=== PATIENT | male | born 1985 | race African-American/Black ===

== ENCOUNTER 2025-03-13 23:09 | Emergency (ER) | payer SELFPAY ==
[2025-03-13 23:25] VITALS: BP 129/85; PULSE 80; RESP 18; TEMP 36.7; O2SAT 97; BMI 29.6
--- OUTSIDE RECORDS SUMMARY | 2025-03-13 23:54 | XMS_ITS | Clinical Summary ---
Author Organization [address] [facility] Address [address] [place] [phone] Phone Care Team Providers Care Geological Engineer Name Role Phone Austin Abreu MD Primary Care Provider [phone] Medications valACYclovir (VALTREX) 1 gram tabletIndication s:Herpesviral infection, unspecified TAKE 1 TABLET BY MOUTH EVERY DAY 30 tablet 12/17/2024 Active Surgical History Surgery Date Site/Laterality Comments COLONOSCOPY 04/26/2020 PROCEDURE: HISTORICAL COLONOSCOPY; COMMENT: Left sided ulcerative colitis. No path report-just progress notes. Medical History Medical History Date Comments HSV infection 06/26/2017 DX:HSV infection Homelessness 09/25/2020 DX:Homelessness; COMMENT: Per [facility] monthly list. Personal history of malignan t melanoma of skin DX:Personal history of malig nant melanoma of skin Vitamin D deficiency 09/25/2020 DX:Vitamin D deficiency Ulcerative colitis ([facility]/HCC V24, CMS/HCC V28) 09/25/2020 DX:Ulcerative colitis ([facility]); COMMENT: s/p colonoscopy 04/26/2020, left sided UC, hx rectal bleeding. Social History Tobacco Use Types Packs/Day Years Used Date Smoking Tobacco: Never Smokeless Tobacco: Never Alcohol Use Standard Drinks/Week Comments Not Currently 0 (1 standard drink = 0.6 oz pur e alcohol) Sex and Gender Information Value Date Recorded Sex Assigned at Not on file Legal Sex Male 11:29 AM EST Gender Identity Not on file Sexual Orientation Not on file Obstetrics History Last Filed Vital Signs Vital Sign Reading Time Taken Comments Blood Pressure 132/86 12/10/2023 10:09 AM EDT Pulse 69 05/21/2023 2:49 PM EST Temperature - - Respiratory Rate - - Oxygen Saturation - - Inhaled Oxygen Concentration - - Weight 101 kg (222 lb 6.4 oz) 12/10/2023 10:09 A M EDT Height 182.9 cm (6') 05/21/2023 2:49 PM EST Body Mass Index 30.16 05/21/2023 2:49 PM EST Plan of Treatment Health Maintenance Due Date Last Done Comments DTaP,Tdap,and Td Vaccines (1 - Tdap) 2005 Hepatitis B Vaccines (1 of 3 - 19+ 3-dose series) 2005 HPV Vaccines (1 - 3-dose SCD M series) 2013 Cholesterol Screening (Lipid Panel) 03/19/2022 HIV Screening 03/19/2022 Hepatitis C Screening 03/19/2022 Social Influencers of Health Screening 03/19/2022 Depression Screening 04/21/2024 COVID-19 Vaccine (1 - 2024-2 6 season) 2024 Influenza Vaccine (#1) 2024 RSV Immunization Adult Patie nts (1 - 1-dose 75+ series) 2061 HIB Vaccines Aged Out No longer eligi ble based on patient's age to complete this topic Hepatitis A Vaccines Aged Out No long er eligible based on patient's age to complete this topic IPV Vaccines Aged Out No longer eligi ble based on patient's age to complete this topic MMR Vaccines Aged Out No longer eligi ble based on patient's age to complete this topic Meningococcal ACWY Vaccine Aged Out N o longer eligible based on patient's age to complete this topic Meningococcal B Vaccine Aged Out No l onger eligible based on patient's age to complete this topic Pneumococcal Vaccine: Pediat rics (0 to 5 Years) and At-Risk Patients (6 to 49 Years) Aged Out No longer eligible b ased on patient's age to complete this topic RSV Immunization Patients Un elijah 20 months Aged Out No longer eligible b ased on patient's age to complete this topic Varicella Vaccines Aged Out No longer eligible based on patient's age to complete this topic Care Teams Geological Engineer Relationship Specialty Start Date End Date Austin Abreu MD [address] [place] [address] PCP - General Internal Medicine 12/21/24
--- OUTSIDE RECORDS SUMMARY | 2025-03-13 23:54 | XMS_ITS ---
[facility] Name [facility] Unknown Care Team Organization Name Specialty Phone Email Start Date End Da te [facility] Austin Abreu Primary Care 02/26/2022 12/08/19 24
--- NOTE | 2025-03-14 00:34 | PC.NURSE ---
Pt declining blood work. Provider aware.
[2025-03-14 01:03] LABS: MANUAL DIFF FLAG NO
[2025-03-14 01:09] LABS: Hematocrit 41.9 % (42.0-52.0); Hemoglobin 14.7 g/dl (14.0-18.0); Imm Gran Abs Auto 0.02 X10*3/uL (0.00-0.03); Imm Gran Pct Auto 0.3 % (0.0-0.4); Lymphocytes Absolute Auto 2.5 X10*3/uL (1.2-4.9); Mean Corpuscular HGB Conc 35.1 g/dl (31.0-36.0); Mean Corpuscular Hemoglobin 32.2 pg (27.0-33.0); Mean Corpuscular Volume 91.9 fL (80.0-98.0); NRBC Abs Auto 0.000 X10*3/uL (0.0-0.012); NRBC Pct Auto 0.0 /100WBC (0.0-0.2); Platelet Count 185 X10*3/uL (160-400); Red Blood Count 4.56 X10*6/uL (4.60-5.80); White Blood Count 6.3 X10*3/uL (4.8-10.8)
[2025-03-14 01:32] LABS: Alanine Aminotransferase 21 U/L (0-40); Albumin Level 4.2 g/dL (3.5-5.0); Alkaline Phosphatase 82 U/L (39-117); Anion Gap 13 (12-20); Aspartate Amino Transferase 25 U/L (5-37); Blood Urea Nitrogen 13 mg/dL (9-16); Calcium 9.1 mg/dL (8.4-10.2); Carbon Dioxide 29 mmol/L (22-29); Chloride 103 mmol/L (96-108); Creatinine Clr Calc Pharmacy 104.3; Estimated Glomerular Filt Rate > 60; Lipase 35 U/L (8-78); Magnesium 1.7 mg/dL (1.6-2.6); Potassium 3.9 mmol/L (3.3-5.1); Sodium 141 mmol/L (135-145); Total Protein 7.0 g/dL (6.5-8.0)
--- NOTE | 2025-03-14 01:37 | ED_ITS ---
HPI - General Adult General Chief complaint: Abdominal Pain Stated complaint: abd pain Time Seen by Provider: 03/13/25 23:51 Source: patient, RN notes reviewed and old records reviewed Mode of arrival: ambulatory Limitations: no limitations History of Present Illness ED Provider: Patrick CHANG narrative: 39-year-old male who reports a past medical history significant for Crohn's disease presents for evaluation abdominal pain and diarrhea. He reports that he has had bright red blood in his stool pain Symptoms started 2 days ago. He reports that he has been noncompliant with his Lialda because ?I was doing well and I did not think I need the medication anymore. ? He reports that he has a GI doctor but he has not seen them in 2 years. He denies any fevers abdominal surgeries. Denies any fevers, chills, recent travel. No other complaints or concerns Related Data Previous Rx's ?Medication ?Instructions ?Recorded mesalamine 1.2 gram tablet,delayed 2.4 g (2 x 1.2 gram ) PO DAILY 8 03/14/25 release (Lialda) weeks #112 tabs Allergies Allergy/AdvReac Type Severity Reaction Status Date / Time No Known Allergies Allergy Verified 03/13/25 23:29 Review of Systems 2 Constitutional: Constitutional: Denies body ache(s), Denies chills and Denies fever(s) ENT: Denies vertigo and Denies dizziness Cardiovascular: Cardiovascular: Denies chest pain Gastrointestinal: Gastrointestinal: Reports abdominal pain, Denies melena, Reports hematochezia, Reports diarrhea, Reports loose stools, Reports nausea and Denies vomiting Musculoskeletal: Musculoskeletal: Denies back pain Integumentary/Breasts: Skin/Breast: Denies rash Neurologic: Denies vertigo and Denies dizziness Psychiatric: Psychiatric: Denies anxiety PMFSH Social History Social History Advance Directives: No Advance Directives Information Provided: No Do you have a plan to hurt others: No Plan Physical Exam ED Vital Signs: Vital Signs - 24 hr 03/13/25 23:25 Temperature 98.0 F Pulse Rate 80 Respiratory Rate 18 Blood Pressure 129/85 Pulse Oximetry 97 Oxygen Delivery Method Room Air BMI result Body Mass Index 29.6 Const General: healthy appearing, comfortable, no acute distress, alert and awake Nutritional Appearance: well nourished Orientation/consciousness: patient oriented x3 HENMT Head: Yes normocephalic and Yes atraumatic Eyes Eyelids: Yes eyelids normal Conjunctivae: conjunctivae normal Sclerae: sclerae normal Corneas: corneas normal Pupils: Equal, round and reactive pupils present EOM: EOMs intact bilaterally Neck Neck: Yes full ROM Resp Effort & Inspection: normal respiratory effort, able to speak in complete sentences and not labored Cardio Rate: regular rate Rhythm: regular rhythm GI Other: The patient declined digital rectal examination Inspection: No distended Palpation (GI): Soft to palpation, not firm, nontender, no guarding and not rigid Skin General skin exam: elasticity normal Neuro General: patient oriented x3 Cranial nerves: Yes Equal, round and reactive pupils present and Yes Bilaterally intact EOM present Cognition (Neuro): normal cognition Extrem Other: Moving all extremities well without any obvious deformities Medications Administered Discontinued Medications Generic Name Dose Route Start Last Admin Trade Name Freq PRN Reason Stop Dose Admin Ondansetron HCl 4 mg 03/14/25 01:05 03/14/25 01:14 Ondansetron Hcl 4 Mg/2 Ml Vial IVPUSH 03/14/25 01:06 4 mg ONCE ONE Administration Medical Decision Making Medical Decision Making [facility] Narrative: 39-year-old male who reports a past medical history significant for Crohn's disease on Lialda presents for evaluation abdominal pain with bloody diarrhea. He reports in his symptoms started 2 days ago. He has lower abdominal cramping, mostly left-sided. He reports bright red blood in his stool. His vital signs are within normal limits, he is quite well appearing, his physical exam is reassuring, he has no significant abdominal tenderness, no rebound or guarding. His abdomen is nondistended. He declined digital rectal examination. He initially declined labs and was able to convince the patient to consent to labs to evaluate for his H&H, concern for high leukocytosis or inflammatory markers. His labs did not show any concerning abnormalities. His hemoglobin is within normal limits at 14.7, his hematocrit is just below normal at 41.9%. Given that he is hemodynamically stable the patient can safely be discharged despite declining a digital rectal for guaiac testing. He reports that he has gastroenterology follow up. I will represcribe his Lialda medication. He has his prescription with the plan on 02/12/2025 Differential Diagnosis Differential Diagnoses: The differential diagnosis associated with the presentation includes irritable bowel disease diarrhea Diverticulitis Crohn's disease Acute appendicitis less likely Constipation Lab Data MDM Lab Attestation statement: I reviewed the patient's lab results. No leukocytosis or significant anemia. Normal platelet count. No electrolyte abnormalities warranting intervention. CRP within normal limits 03/14/25 00:55 03/14/25 00:55 Labs: Lab Results 03/14/25 Range/Units 00:55 WBC 6.3 (4.8-10.8) X10*3/uL RBC 4.56 L (4.60-5.80) X10*6/uL Hgb 14.7 (14.0-18.0) g/dl Hct 41.9 L (42.0-52.0) % MCV 91.9 (80.0-98.0) fL MCH 32.2 (27.0-33.0) pg MCHC 35.1 (31.0-36.0) g/dl RDW 13.3 (11.0-16.0) % Plt Count 185 (160-400) X10*3/uL MPV 9.9 (9.4-12.4) fL Immature Gran % (Auto) 0.3 (0.0-0.4) % Neut % (Auto) 46.6 (45-73) % Lymph % (Auto) 39.8 (20-40) % [place] % (Auto) 9.2 (2-11) % Eos % (Auto) 3.8 (0-4) % Baso % (Auto) 0.3 (0-2) % Lymph # (Auto) 2.5 (1.2-4.9) X10*3/uL [place] # (Auto) 0.6 (0.1-1.2) X10*3/uL Eos # (Auto) 0.2 (0.0-0.4) X10*3/uL Baso # (Auto) 0.0 (0.0-0.2) X10*3/uL Abs Immat Gran (auto) 0.02 (0.00-0.03) X10*3/uL Absolute Neuts (auto) 2.9 (2.0-8.3) x10*3/uL Absolute Nucleated RBC 0.000 (0.0-0.012) X10*3/uL Nucleated RBC % (auto) 0.0 (0.0-0.2) /100WBC Sodium 141 (135-145) mmol/L Potassium 3.9 (3.3-5.1) mmol/L Chloride 103 (96-108) mmol/L Carbon Dioxide 29 (22-29) mmol/L Anion Gap 13 (12-20) BUN 13 (9-16) mg/dL Creatinine 1.17 (0.5-1.4) mg/dL Estim Creat Clear Calc 104.3 Estimated GFR > 60 Random Glucose 78 (60-115) mg/dL Calcium 9.1 (8.4-10.2) mg/dL Magnesium 1.7 (1.6-2.6) mg/dL Total Bilirubin 0.5 (0.0-1.0) mg/dL AST 25 (5-37) U/L ALT 21 (0-40) U/L Alkaline Phosphatase 82 (39-117) U/L C-Reactive Protein < 0.10 (< or = 0.50) mg/dL Total Protein 7.0 (6.5-8.0) g/dL Albumin 4.2 (3.5-5.0) g/dL Lipase 35 (8-78) U/L Discharge Plan Discharge Patient Disposition: Home, Self-Care Instructions: Irritable Bowel Syndrome (ED) Additional Instructions: Your workup in the ER today was reassuring pain This includes your blood work and your exam. I sent a new prescription for your Lialda to treat your Crohn's. Follow up with your GI doctor, call tomorrow to make an appointment. Return for new or worsening symptoms Prescriptions: New mesalamine [Lialda] 1.2 gram tablet,delayed release (DR/EC) 2.4 g PO DAILY 56 Days Qty: 112 0RF Print Language: Greek
[2025-03-14 01:50] LABS: Erythrocyte Sedimentation Rate 4 MM/HR (0-15)
[2025-03-14 02:00] VITALS: BP 126/72; PULSE 70; RESP 14; TEMP 36.2; O2SAT 98
== END 2025-03-14 02:03 | disposition home or self-care (01) ==
PROVIDERS: Physician Assistant; Emergency Provider Emergency Medicine; PCP Internal Medicine
DX: R10.9 Unspecified abdominal pain (principal); R19.7 Diarrhea, unspecified; K50.90 Crohn's disease, unspecified, without complications; Z79.899 Other long term (current) drug therapy
CPT/HCPCS: 36415; 80053; 83690; 83735; 85025; 85652; 86140; 96374; 99284; J2405

== ENCOUNTER 2025-04-02 09:50 | Emergency (ER) | payer OTHER, SELFPAY ==
--- NOTE | ~2025-04-02 | XR_ITS ---
CLINICAL HISTORY: cough 2 view chest x-ray Comparison: None provided Findings: The lungs are clear. Normal size heart. No acute fracture. IMPRESSION: 1. No acute findings. This document has been electronically signed by: Fern Arriaga MD on 04/02/2025 10:57:59
[2025-04-02 10:04] VITALS: BP 136/74; PULSE 64; RESP 16; TEMP 36.2; O2SAT 95; BMI 28.6
--- NOTE | 2025-04-02 10:13 | PC.NURSE ---
pt refusing EKG, CXR, labwork at this time. would like to wait for the results for swab first.
--- NOTE | 2025-04-02 10:16 | MHC.EDTECH ---
PT REFUSED LABS & EKG
--- NOTE | 2025-04-02 10:30 | MHC.EDTECH ---
patient refused labs and EKG, RN aware
--- OUTSIDE RECORDS SUMMARY | 2025-04-02 10:39 | XMS_ITS | Clinical Summary ---
Author Organization [address] [facility] Address [address] [place] [phone] Phone Care Team Providers Care Senior Genetic Counselor Name Role Phone Austin Abreu MD Primary Care Provider [phone] Medications valACYclovir (VALTREX) 1 gram tabletIndication s:Herpesviral [...] deficiency 09/25/2020 DX:Vitamin D deficiency Ulcerative colitis ([facility]/HCC V24, CMS/HCC V28) 09/25/2020 DX:Ulcerative colitis ([facility]); COMMENT: s/p colonoscopy 04/26/2020, left sided [...] on file Sexual Orientation Not on file Last Filed Vital Signs Vital Sign Reading [...] age to complete this topic Care Teams Senior Genetic Counselor Relationship Specialty Start Date End Date Austin Abreu MD [address] [place] [address] PCP - General Internal Medicine 12/21/24
--- NOTE | 2025-04-02 10:54 | ED.CHESTPAIN ---
HPI - Chest Pain General Chief Complaint: Chest Pain Stated Complaint: upper resp symptoms Time Seen by Provider: 04/02/25 10:36 Source: patient Mode of arrival: ambulatory Limitations: no limitations History of Present Illness ED Provider: Caty Zapata APRN HPI narrative: 39-year-old male with no known medical history presents the ER with 2-3 days of nonproductive cough, chest congestion, nausea and runny nose. Patient reports some chest discomfort with coughing and breathing. He denies any shortness of breath, fevers, chills, leg swelling, leg pain, abdominal pain, vomiting, diarrhea, neck pain, neck stiffness, skin rash. He reports that he had a co-worker who had similar symptoms that he was exposed to. He reports that his symptoms are improving and he is here today because he would like a note to return to work. Related Data Previous Rx's ?Medication ?Instructions ?Recorded mesalamine 1.2 gram tablet,delayed 2.4 g (2 x 1.2 gram) PO DAILY 8 03/14/25 release (Lialda) weeks #112 tabs Allergies Allergy/AdvReac Type Severity Reaction Status Date / Time No Known Allergies Allergy Verified 04/02/25 10:05 Review of Systems Review of Systems: Yes all other systems are reviewed and are negative Constitutional: Constitutional: Reports no additional constitutional complaints, Denies body ache(s), Denies chills, Denies fever(s), Denies headache(s) and Denies weakness Eyes: Eyes: Reports no additional eye complaints and Denies change in vision ENT: Reports system reviewed and no additional complaints, except as documented, Denies dizziness, Denies headache(s), Reports nasal congestion, Reports nasal discharge and Denies neck pain Cardiovascular: Cardiovascular: Reports no additional cardiovascular complaints, Reports chest pain, Denies leg edema and Denies dyspnea Respiratory: Respiratory: Reports no additional respiratory complaints, Reports cough and Denies dyspnea Gastrointestinal: Gastrointestinal: Reports no additional gastrointestinal complaints, Denies abdominal pain, Denies diarrhea, Denies nausea and Denies vomiting Genitourinary: Genitourinary: Denies urinary incontinence Musculoskeletal: Musculoskeletal: Reports no additional musculoskeletal complaints, Denies back pain, Denies arthralgias, Denies joint swelling, Denies neck pain, Denies numbness and Denies tingling Integumentary/Breasts: Skin/Breast: Reports system reviewed and no additional complaints, except as docu and Denies rash Neurologic: Reports system reviewed and no additional complaints, except as documented, Denies Abnormal speech present, Denies dizziness, Denies headache(s), Denies numbness, Denies tingling and Denies weakness PMFSH Past Medical History Attestation statement: The following information was validated with the patient. Source: old records reviewed and nursing notes reviewed Social History Social History Advance Directives: No Advance Directives Information Provided: No Physical Exam Vital Signs: Vital Signs: Last Vital Signs Temp 97.2 F 04/02/25 11:18 Pulse 64 04/02/25 11:18 Resp 16 04/02/25 11:18 BP 136/74 04/02/25 11:18 Pulse Ox 95 04/02/25 11:18 O2 Del Method Room Air 04/02/25 11:18 BMI result Body Mass Index 28.6 Const: General: cooperative, healthy appearing, comfortable and no acute distress Orientation/consciousness: patient oriented x3 Limitations: no limitations HEENT: Head: Yes normal to inspection Ears: hearing grossly normal bilaterally and TM's normal bilaterally General nose exam: Normal external nose present Face and sinus: Yes normal facial exam Mouth: Normal oral and palatal mucosa present Throat: Yes posterior oropharynx normal Eyes: General: appearance normal, both eyes and all related structures Pupils: Equal, round and reactive pupils present Neck: Neck: Yes normal visual inspection Chest: Chest palpation & inspection: normal inspection of the chest Resp: Effort & Inspection: normal respiratory effort Auscultation: clear to auscultation bilaterally Cardio: Rate: regular rate Rhythm: regular rhythm Peripheral pulses: Peripheral pulses 2+ throughout GI: Inspection: Yes normal to inspection Palpation (GI): Soft to palpation and nontender Auscultation: normal bowel sounds Back/Spine/Pelvis: Thoracic/Lumbar Spine: thoracic and lumbar spine normal to inspection Skin: General skin exam: no rashes or lesions noted Neuro: General: patient oriented x3, no focal motor deficits and normal sensation to monofilament Cranial nerves: Yes Equal, round and reactive pupils present Cognition (Neuro): normal cognition Speech: No Abnormal speech present Gait exam (Neuro): Normal gait present Motor exam (neuro): 5/5 motor strength present throughout Extrem: General: Yes normal to inspection, Yes no calf tenderness and No edema Course Course Course Narrative: viral screen is negative. Chest x-ray shows no acute finding. I did recommend the patient have an EKG due to his reports of viral symptoms with chest pain that occurs with Breathing and coughing. It is nonexertional. It does seem atypical but I would like to get an EKG to rule out pericarditis or myocarditis. Labs are also ordered to include the same. Patient declined EKG and labs aware that we can not rule out these diagnoses. Will discharge home with recommendations for supportive measures and patient is welcome to return at any time. Comfortable with plan for discharge Medical Decision Making Medical Decision Making [facility] Narrative: 39-year-old male with no known medical history presents the ER with 2-3 days of nonproductive cough, chest congestion, nausea and runny nose. Patient reports some chest discomfort with coughing and breathing. He denies any shortness of breath, fevers, chills, leg swelling, leg pain, abdominal pain, vomiting, diarrhea, neck pain, neck stiffness, skin rash. He reports that he had a co-worker who had similar symptoms that he was exposed to. He reports that his symptoms are improving and he is here today because he would like a note to return to work. exam is benign Vitals are stable Likely viral syndrome would obtain viral testing, ekg, CXR Differential Diagnosis Differential Diagnoses: The differential diagnosis associated with the presentation includes viral syndrome, influenza, strep pharyngitis, AOM, PNA Lower suspician for PE with PERC 0 Consider myocarditis/pericarditis Admission/Observation Consideration of admission/observation: Escalation of care including admission/observation considered Lab Data [facility] Lab Attestation statement: I reviewed the patient's lab results. Labs: Lab Results 04/02/25 Range/Units 10:15 Influenza Type A (PCR) NEGATIVE (Negative) Influenza Type B (PCR) NEGATIVE (Negative) RSV RNA Qual (PCR) NEGATIVE (Negative) SARS-CoV-2 RNA (RT-PCR) NEGATIVE (Negative) Independent Interpretation I performed an independent interpretation of an: Plain X-Ray Interpretation: I independently viewed the x-ray and agree with the radiology report Radiology Impression Discussion of test interpretation with radiology: I have reviewed the radiologist's reading. Radiologist Impression: [address] [address] XRay Report Signed Patient: Spike Joseph MR#: [id number] : 1985 Acct:[id number] Age/Sex: 39 / M ADM Date: 04/02/25 Loc: HO.ED Attending Dr: Ordering Physician: Kwasi Gilmore MD Date of Service: 04/02/25 Procedure(s): XR chest 2V Accession Number(s): [id number] cc: Kwasi Gilmore MD; LEANNE PENN MD~ Reason for Exam: cough CLINICAL HISTORY: cough 2 view chest x-ray Comparison: None provided Findings: The lungs are clear. Normal size heart. No acute fracture. IMPRESSION: 1. No acute findings. This document has been electronically signed by: Fern Arriaga MD on 04/02/2025 10:57:59 Discharge Plan Discharge Clinical Impression: Acute viral syndrome Patient Disposition: Home, Self-Care Instructions: Viral Syndrome (ED) Additional Instructions: your test for COVID and flu were negative Your x-ray shows no signs of pneumonia We did recommend that we perform an EKG but you declined this. You may take Motrin or Tylenol for pain as needed Increase fluids, rest Follow up with your doctor for any continued symptoms Prescriptions: No Action mesalamine [Lialda] 1.2 gram tablet,delayed release (/EC) 2.4 g PO DAILY 56 Days Qty: 112 0RF Referrals: Leanne Penn MD [Primary Care Provider, Internal Medicine] Stand Alone Forms: Work/School Release Interventions: ED Discharge Assessment Last Done: 04/02/25 11:18 Discharge Date/Time: 04/02/25 11:18 Print Language: Nepali
[2025-04-02 10:58] LABS: Resp Syncy Virus RNA Qual PCR NEGATIVE (Negative); SARS COV2 PCR INHOUSE NEGATIVE (Negative)
--- NOTE | 2025-04-02 11:10 | PC.NURSE ---
PA at bedside, pt continues to refuse lab work and EKG. Xray and swabs obtained and collected
[2025-04-02 11:18] VITALS: BP 136/74; PULSE 64; RESP 16; TEMP 36.2; O2SAT 95
== END 2025-04-02 11:18 | disposition home or self-care (01) ==
PROVIDERS: Emergency Provider Emergency Medicine; PCP Internal Medicine
DX: B34.9 Viral infection, unspecified (principal); R05.9 Cough, unspecified; R11.0 Nausea; R09.89 Other specified symptoms and signs involving the circulatory and respiratory systems; Z03.818 Encounter for observation for suspected exposure to other biological agents ruled out
CPT/HCPCS: 71046; 87637; 99282; 99283

== ENCOUNTER → 2025-04-02 10:09 | Outpatient (BNV) | payer SELFPAY | PROVIDERS: Emergency Provider Emergency Medicine; PCP Internal Medicine; Visit Provider Radiology Diagnostic Radiology | DX: R05.9 Cough, unspecified (principal) | CPT/HCPCS: 71046 ==